=== PATIENT | female | born 1965 | race American Indian/Alaskan Native ===

== ENCOUNTER 2016-11-08 11:15 | Outpatient (CLI) | payer OTHER ==
--- NOTE | 2016-11-08 13:22 | Mammography Report ---
Bilateral mammogram: No previous studies available. CAD study utilized. Findings: Scattered glandular parenchyma bilaterally. Ill-defined density upper outer left breast. No microcalcifications. Normal axilla. Impression: Ill-defined density left breast. Comparison with previous studies is recommended. If previous studies are not available spot negative study sonographic examination advised. BI-RADS CATEGORY: 0 = Needs additional imaging evaluation ACR BI-RADS MAMMOGRAPHIC CODES: 0 = Needs additional imaging evaluation; 1 = Negative; 2 = Benign; 3 = Probably benign; 4 = Suspicious; 5 = Malignant; 6 = Known biopsy-proven malignancy COMMENT: 1. Dense breast tissue, i.e., adenosis, fibrocystic changes, etc., may obscure an underlying neoplasm. 2. Approximately 10% of cancers are not detected with mammography. 3. A negative mammography report should not delay biopsy if a clinically suspicious mass is present. COMMENT: Patient follow-up letters are generated in [employer].
== END 2016-11-08 11:16 | disposition home or self-care (01) ==
LOC: MAMMO 11:15
PROVIDERS: ATTEND Advanced Practice Midwife
DX: Z12.31 Encounter for screening mammogram for malignant neoplasm of breast (principal); I10 Essential (primary) hypertension
CPT/HCPCS: 77067; G0202

== ENCOUNTER 2016-12-04 10:59 | Outpatient (CLI) | payer OTHER ==
--- NOTE | 2016-12-04 15:02 | Ultrasound Report ---
RENAL ULTRASOUND: 12/04/16 CLINICAL: Microscopic hematuria. FINDINGS: High resolution ultrasound demonstrated normal renal collecting systems. Normal echogenicity of the kidneys. No renal mass, cyst or calculus. The right kidney measures 10.0 x 4.3 x 4.7-cm. The renal parenchyma measures 1.3-cm in thickness. The left kidney measures 9.1 x 6.0 x 5.2-cm. The renal parenchyma measures 1.7-cm in thickness. The urinary bladder is normal. IMPRESSION: Normal kidneys.
== END 2016-12-04 11:00 | disposition home or self-care (01) ==
LOC: SPVWC 10:59
PROVIDERS: ATTEND Family Medicine
DX: R31.29 Other microscopic hematuria (principal); I10 Essential (primary) hypertension
CPT/HCPCS: 76770

== ENCOUNTER 2016-12-22 10:59 | Outpatient (CLI) | payer OTHER ==
--- NOTE | 2016-12-22 13:06 | Ultrasound Report ---
LEFT DIGITAL DIAGNOSTIC MAMMOGRAM and LEFT BREAST ULTRASOUND: 12/22/16 10:59:00 CLINICAL: Recalled for asymmetries. COMPARISON:11/08/16 screening FINDINGS: Spot compression MLO and CC views were performed and demonstrates satisfactory effacement of asymmetries. An oval circumscribed outer nodule measures 6 mm. Ultrasound of the outer left breast was performed and demonstrated normal fibroglandular structures in normal fatty structures. No mass, cyst or shadowing. No finding to correlate with the nodular density on the mammogram. IMPRESSION: A probably benign 6 mm circumscribed outer nodule with no ultrasound correlation. BI-RADS CATEGORY: 3 - - Probably Benign RECOMMENDATION: Six month followup left mammogram. ACR BI-RADS MAMMOGRAPHIC CODES: 0 = Needs additional imaging evaluation; 1 = Negative; 2 = Benign; 3 = Probably benign; 4 = Suspicious; 5 = Malignant; 6 = Known biopsy-proven malignancy COMMENT: 1. Dense breast tissue, i.e., adenosis, fibrocystic changes, etc., may obscure an underlying neoplasm. 2. Approximately 10% of cancers are not detected with mammography. 3. A negative mammography report should not delay biopsy if a clinically suspicious mass is present. COMMENT: Patient follow-up letters are generated via our [employer] application.
== END 2016-12-22 11:00 | disposition home or self-care (01) ==
LOC: SPVWC 10:59
PROVIDERS: ATTEND Advanced Practice Midwife
DX: N63 Unspecified lump in breast (principal); N64.59 Other signs and symptoms in breast; I10 Essential (primary) hypertension
CPT/HCPCS: 76642; G0206

== ENCOUNTER 2017-10-13 08:12 | Emergency (ER) | payer SELFPAY ==
--- NOTE | 2017-10-13 09:01 | Cat Scan Report ---
FINAL REPORT EXAM: CT LUMBAR SPINE WO CON HISTORY: back pain s/p fall TECHNIQUE: CT images are acquired through the lumbar spine without contrast. Transaxial , coronal and sagittal reformations are provided. PRIORS: None. FINDINGS: Lumbar lordosis is intact. Vertebral body heights and intervertebral disc spaces are preserved. No listhesis, spondylolysis or other fracture. No spinal canal or neural foraminal stenosis identified within limits of CT. Paraspinal soft tissues and imaged portions of the abdomen and pelvis demonstrate an unremarkable noncontrast appearance. IMPRESSION: No lumbar spine fracture or malalignment. Consider additional imaging for worsening/persistent symptoms.
--- NOTE | 2017-10-13 09:52 | Emergency Department Report ---
HPI - General Chief Complaint: Back Pain/Injury Time Seen by Provider: 10/13/17 09:50 - HPI HPI: Patient is a 52-year-old female presents to ED complaining of lower back pain status post fall yesterday. Patient states she tripped over a vacuum cord and fell on her butt mostly in her left side. Patient states she fell down about 4 steps. Patient states that she rested further recommend the day. But today when she got up she started to feel some left side lower back pain and left- sided showed a back pain. Patient states she did not hit her head or sustain any injuries to the neck and head. Patient describes pain as throbbing and aching in nature. Patient denies loss of consciousness after incident. Patient denies fevers/nausea/vomiting/abdominal pain/chest pain/shortness of breath. ED Past Medical Hx - Past Medical History Hx Hypertension: Yes - Surgical History Additional Surgical History: Hysterectomy - Social History Smoking Status: Never Smoker Substance Use Type: None - Medications Home Medications: Home Medications Medication Instructions Recorded Confirmed Last Taken Type Hydrochlorothiazide [HCTZ] 25 mg PO QDAY #30 tablet 08/02/16 Unknown Rx Ibuprofen [Motrin] 800 mg PO Q8HR PRN #20 tablet 08/02/16 Unknown Rx traMADol [Ultram 50 MG tab] 50 mg PO Q6HR PRN #15 tablet 08/02/16 Unknown Rx Cyclobenzaprine [Flexeril] 10 mg PO QHS PRN #24 tablet 10/13/[address] (Nf) 50 mg PO BID #30 tablet. 10/13/17 Unknown Rx ED Review of Systems ROS: Stated complaint: FALL Other details as noted in HPI Constitutional: denies: chills, fever Eyes: denies: eye pain, eye discharge, vision change ENT: denies: ear pain, throat pain Respiratory: denies: cough, shortness of breath, wheezing Cardiovascular: denies: chest pain, palpitations Endocrine: no symptoms reported Gastrointestinal: denies: abdominal pain, nausea, diarrhea Genitourinary: denies: urgency, dysuria, discharge Musculoskeletal: denies: back pain, joint swelling, arthralgia Skin: denies: rash, lesions Neurological: denies: headache, weakness, paresthesias Psychiatric: denies: anxiety, depression Hematological/Lymphatic: denies: easy bleeding, easy bruising Physical Exam - Physical Exam Vital Signs: Vital Signs 10/13/17 08:24 Temperature 97.7 F Pulse Rate 53 L Respiratory 18 Rate Blood Pressure 201/101 O2 Sat by Pulse 100 Oximetry Physical Exam: GENERAL: Alert and oriented x3, no apparent distress, Normal Gait, atraumatic. HEAD: Head is normocephalic and a-traumatic. NECK: Supple. Non edematous, No lymphadenopathy or thyromegaly. No C-spine tenderness, full range of motion LUNGS: Symetrical with respiration, No wheezing, no rales or crackles, CTAB. HEART: S1, S2 present, regular rate and rhythm without murmur, no rubs, no gallops. Non tender to palpation BACK: Full range of motion, no spinal tenderness, Tenderness to palpation of the trapezius muscles and latissimus dorsi muscles of the back EXTREMITIES/MUSCULOSKELETAL: No cyanosis, clubbing, rash, lesions or edema. Full ROM bilaterally. UE/LE Pulses 2+ bilaterally. UE 5+ strength bilaterally , NEUROLOGIC: The patient is cooperative with no focal neurologic deficits. SKIN: Warm and dry, No lesions, No ulceration or induration present. ED Course Vital Signs 10/13/17 08:24 Temperature 97.7 F Pulse Rate 53 L Respiratory 18 Rate Blood Pressure 201/101 O2 Sat by Pulse 100 Oximetry ED Medical Decision Making - Radiology Data Radiology results: report reviewed, image reviewed FINAL REPORT EXAM: CT LUMBAR SPINE WO CON HISTORY: back pain s/p fall TECHNIQUE: CT images are acquired through the lumbar spine without contrast. Transaxial , coronal and sagittal reformations are provided. PRIORS: None. FINDINGS: Lumbar lordosis is intact. Vertebral body heights and intervertebral disc spaces are preserved. No listhesis, spondylolysis or other fracture. No spinal canal or neural foraminal stenosis identified within limits of CT. Paraspinal soft tissues and imaged portions of the abdomen and pelvis demonstrate an unremarkable noncontrast appearance. IMPRESSION: No lumbar spine fracture or malalignment. Consider additional imaging for worsening/persistent symptoms. Transcribed By: KATELIN Dictated By: ISABEL PEREZ MD Electronically Authenticated By: ISABEL PEREZ MD Signed Date/Time: 10/13/17 0857 - Medical Decision Making 52-year-old female patient to myalgia status post fall ED course: CT scan of the lumbar spine shows no acute findings see reported above I discussed the findings with the patient. I discussed the patient to follow up with her primary care physician I discussed patient and she has any worsening symptoms to return back to ED immediately. Patient had no neuro deficit or muscular deficit Vital signs shows elevated blood pressure while in ED. Patient said she has not taken her blood pressure medication today prior to coming to the ED Patient states she takes amlodipine 10. Amlodipine was administered to patient prior to discharge. Patient had no symptoms in the ED no complaints of chest pain, shortness of breath or headache blurry vision. Patient was given some crackers and juice because she says she has not eating today. Critical care attestation.: If time is entered above; I have spent that time in minutes in the direct care of this critically ill patient, excluding procedure time. ED Disposition Clinical Impression: Myalgia, Fall (on) (from) other stairs and steps, initial encounter Disposition: TO HOME OR SELFCARE Is pt being admited?: No Does the pt Need Aspirin: No Condition: Stable Instructions: Trigger Point Pain (ED), Musculoskeletal Pain (ED), Fall Prevention (ED) Additional Instructions: Make sure to follow up with the primary care physician as discussed. Take all your medications as you've been prescribed. If you have any worsening symptoms or develop new symptoms please return to ED immediately. Prescriptions: Cyclobenzaprine [Flexeril] 10 mg PO QHS PRN #24 tablet PRN Reason: Muscle Spasm Diclofenac Dr (Nf) 50 mg PO BID #30 tablet. Referrals: PRIMARY CARE, [Primary Care Provider] - 3-5 Days [facility] [Outside] - 3-5 Days [facility] [Outside] - 3-5 Days Forms: Work/School Release Form(ED) Time of Disposition: 10:36
[2017-10-13] MEDS ORDERED: TORADOL IM ONE (10:11)
[2017-10-13] MEDS ORDERED: DELTASONE PO ONE (10:11)
[2017-10-13] MEDS ORDERED: DELTASONE ONE (10:19)
[2017-10-13] MEDS ORDERED: TORADOL ONE (10:19)
[2017-10-13] MEDS ORDERED: NORVASC PO ONE (10:50)
[2017-10-13] MEDS ORDERED: NORVASC ONE (10:54)
[2017-10-13 11:03] VITALS: BP 219/93
== END 2017-10-13 11:03 | disposition home or self-care (01) ==
LOC: ED 08:12
DX: M54.5 Low back pain (principal); I10 Essential (primary) hypertension; Z90.710 Acquired absence of both cervix and uterus; Z79.899 Other long term (current) drug therapy; W10.9XXA Fall (on) (from) unspecified stairs and steps, initial encounter; Y93.89 Activity, other specified; Y99.8 Other external cause status; Y92.89 Other specified places as the place of occurrence of the external cause
CPT/HCPCS: 72131; 99283; J1885; J7512; 96372

== ENCOUNTER 2020-09-17 07:03 | Day surgery (SDC) | payer OTHER, SELFPAY ==
[~2020-09-17 07:03] MED LIST: SODIUM CHLORIDE 0.9% 1000 ML 1,000 ML IV SCH
--- NOTE | 2020-09-17 07:38 | Anesthesia Consultation ---
Anesthesia Consult and Med Hx Date of service: 09/17/20 - Airway Anesthetic Teeth Evaluation: Good ROM Head & Neck: Adequate Mental/Hyoid Distance: Adequate Mallampati Class: Class I Intubation Access Assessment: Good - Pulmonary Exam CTA: Yes - Pre-Operative Health Status ASA Pre-Surgery Classification: ASA2 Proposed Anesthetic Plan: MAC - Pulmonary Hx Smoking: No Hx Asthma: No Hx Respiratory Symptoms: No Hx Sleep Apnea: No - Cardiovascular System Hx Hypertension: Yes Hx Heart Attack/AMI: No Hx Angina: No - Central Nervous System Hx Neuromuscular Disorder: No Hx Seizures: No CVA: No Hx Psychiatric Problems: No - Gastrointestinal Hx Gastroesophageal Reflux Disease: No - Endocrine Hx Renal Disease: No Hx Liver Disease: No Hx Insulin Dependent Diabetes: No Hx Non-Insulin Dependent Diabetes: No Hx Thyroid Disease: No - Hematic Hx Anemia: No Hx Sickle Cell Disease: No - Other Systems Hx Alcohol Use: No Hx Substance Use: No Hx Obesity: No - Additional Comments Anesthesia Medical History Comments: Patient denied previous anesthesia complications and took her BP medications earlier this morning.
--- NOTE | 2020-09-17 07:43 | Anesthesia Day of Surgery ---
Anesthesia Day of Surgery - Day of Surgery Patient Examined: Yes Patient H&P Reviewed: Yes Patient is NPO: Yes Beta Blockers: No Cardiac Clearance: No Pulmonary Clearance: No Jean Pierre's Test: N/A
[2020-09-17] MEDS ORDERED: LIDOCAINE MPF (2%) 20 MG/1 ML VIAL 5 ML ONE (08:08)
[2020-09-17] MEDS ORDERED: propofoL 200 MG/20 ML VIAL IV ONE (08:08)
--- NOTE | 2020-09-17 08:46 | Procedure Note ---
Date of procedure: 09/17/20 Pre-op diagnosis: Colon Polyp Screening Post-op diagnosis: other (No Colon Polyps noted/ Moderate,Left Colon Diverticuli/ Normal,Ileal Mucosa/ No Internal Hemorrhoids noted) Procedure: Colonoscopy Anesthesia: MAC Surgeon: MELVIN TREVIZO Estimated blood loss: none Pathology: none Condition: stable Disposition: same day (Encourage fiber intake; resume home medication and follow up i n 1 to 2 weeks ([phone]).)
--- NOTE | 2020-09-17 09:15 | Post Anesthesia Evaluation ---
- Post Anesthesia Evaluation Patient Participated: Yes Airway Patent: Yes Stable Respiratory Function: Yes Nausea/Vomiting: No Temp > 96.8F: Yes Pain Manageable: Yes Adequeate Hydration: Yes Anesthesia Complications: No Block Receding Appropriately: Not Applicable Patient on Ventilator: No
[2020-09-17 09:52] VITALS: BP 129/70
--- NOTE | 2020-09-17 10:10 | Operative Report ---
DATE OF SURGERY: 09/17/2020 HISTORY: This is a 55-year-old female originally from the [place], [place]. She does not give any family history of cancer, but because of her age, had a colonoscopy done as part of colon polyp screening. DESCRIPTION OF PROCEDURE: The procedure was done after getting informed consent with MAC anesthesia. Initial rectal examination was unremarkable. The instrument was passed through the rectum onto the cecum, which was identified by the ileocecal valve and the appendiceal orifice. Visualization was fair to good. The mucosa was washed with copious amounts of water. No significant cecal pathology was noted on the retroverted view as well as in the straight view. The terminal ileum was intubated, showed normal mucosa. The cecum, ascending colon, and transverse colon showed normal mucosa and there was moderate diverticular disease noted in the left colon. The rectum appeared normal on the retroverted view. There were no internal hemorrhoids noted. There was no colon polyps noted. There was no biopsy done and no bleeding associated with the procedure or complications associated with the procedure. The procedure was done in the GI lab with assistance of the GI lab team, which included SALAS Rudolph with the automotive technician instructor and with the assistance of anesthesia. IMPRESSION: Colon polyp screening, no colon polyps noted. Moderate left colon diverticular disease. Normal ileal mucosa. No internal hemorrhoids. PLAN: To encourage the patient to take fiber supplements. Resume home medication and follow up in the office in 1-2 weeks' time. TID: [id number] RECEIPT: [id number] LUCILLE/KAYA
== END 2020-09-17 09:54 | disposition home or self-care (01) ==
LOC: GIO 07:03
DX: Z12.11 Encounter for screening for malignant neoplasm of colon (principal); K57.30 Diverticulosis of large intestine without perforation or abscess without bleeding; I10 Essential (primary) hypertension; Z90.710 Acquired absence of both cervix and uterus; Z79.899 Other long term (current) drug therapy; Z98.890 Other specified postprocedural states
CPT/HCPCS: 45378; J2704; J7030